=== PATIENT | female | born 1945 | race Caucasian/White ===

== ENCOUNTER → 2020-11-23 | Outpatient (CLI) | payer MEDICARE ==
[2020-11-23 09:43] LABS: BUN/CREATININE RATIO 16 (0-10)
== END ==
LOC: LAB 08:42
PROVIDERS: Nurse Practitioner Family
DX: R93.3 Abnormal findings on diagnostic imaging of other parts of digestive tract (principal)
CPT/HCPCS: 36415; 80053

== ENCOUNTER → 2020-12-01 | Outpatient (CLI) | payer MEDICARE ==
[2020-12-01 08:49] LABS: BUN/CREATININE RATIO 13 (0-10)
== END ==
LOC: CT 08:05
PROVIDERS: Advanced Practice Midwife
DX: R93.3 Abnormal findings on diagnostic imaging of other parts of digestive tract (principal); N28.89 Other specified disorders of kidney and ureter
CPT/HCPCS: 36415; 80053; Q9967

== ENCOUNTER → 2021-01-18 | Outpatient (CLI) | payer MEDICARE | LOC: KOH-I 10:54 | DX: J20.9 Acute bronchitis, unspecified (principal) | CPT/HCPCS: 71046 ==

== ENCOUNTER → 2021-07-26 | Outpatient (CLI) | payer MEDICARE | LOC: LAB 08:13 | PROVIDERS: Physician Assistant Medical | DX: C64.1 Malignant neoplasm of right kidney, except renal pelvis (principal); N28.89 Other specified disorders of kidney and ureter | CPT/HCPCS: 36415; 80048 ==

== ENCOUNTER → 2021-07-30 | Outpatient (CLI) | payer MEDICARE | LOC: CT 07-26 09:00 | DX: C64.1 Malignant neoplasm of right kidney, except renal pelvis (principal); N28.89 Other specified disorders of kidney and ureter; E04.9 Nontoxic goiter, unspecified; Z90.5 Acquired absence of kidney; Z90.12 Acquired absence of left breast and nipple; Z90.49 Acquired absence of other specified parts of digestive tract; Z90.710 Acquired absence of both cervix and uterus | CPT/HCPCS: 71260; Q9967 ==

== ENCOUNTER → 2021-09-01 | Outpatient (CLI) | payer MEDICARE | LOC: KOH-I 13:56 | DX: E04.1 Nontoxic single thyroid nodule (principal) | CPT/HCPCS: 76536 ==

== ENCOUNTER → 2021-10-08 | Outpatient (CLI) | payer MEDICARE ==
[2021-10-08 09:28] LABS: HEMOGLOBIN 13.9 gm/dl (12.3-15.3); RED BLOOD COUNT 4.9 M/UL (4.00-5.10); WHITE BLOOD COUNT 8.3 K/UL (4.5-11.0)
[2021-10-09 17:09] LABS: CHOLESTEROL, TOTAL 198 mg/dL (100-199); HDL SIZE 8.7 nm (>=9.2); HDL-C 53 mg/dL (>39); HDL-P (TOTAL) 40.9 umol/L (>=30.5); LARGE HDL-P 4.4 umol/L (>=4.8); LARGE VLDL-P 6.4 nmol/L (<=2.7); LDL SIZE 20.7 nm (>20.5); LDL SIZE 20.7 nm (>=20.8); LDL-C 118 mg/dL (0-99); LDL-P 1463 nmol/L (<1000); LP-IR SCORE 71 (<=45); SMALL LDL-P 805 nmol/L (<=527); TRIGLYCERIDES 154 mg/dL (0-149); VLDL SIZE 51.9 nm (<=46.6)
== END ==
LOC: LAB 08:55
PROVIDERS: Emergency Medicine
DX: E03.8 Other specified hypothyroidism (principal); E78.2 Mixed hyperlipidemia; E55.9 Vitamin D deficiency, unspecified; I10 Essential (primary) hypertension
CPT/HCPCS: 36415; 80053; 80061; 83704; 84443; 84550; 85025